=== PATIENT | female | born 1980 | race Caucasian/White ===

== ENCOUNTER → 2019-09-13 | Outpatient (CLI) | payer OTHER ==
--- NOTE | 2019-09-13 15:40 | US ---
EXAMINATION TYPE: US pelvic complete DATE OF EXAM: 09/13/2019 COMPARISON: NONE CLINICAL HISTORY: 38-year-old female R10.2 pelvic pain. TECHNIQUE: Transabdominal (TA). Date of LMP: 09/08/19 FINDINGS: EXAM MEASUREMENTS: Uterus: 12.2 x 4.1 x 4.8 cm Endometrial Stripe: 0.5 cm Right Ovary: 3.8 x 1.9 x 1.5 cm Left Ovary: 3.2 x 1.6 x 1.7 cm 1. Uterus: Slightly prominent in size and anteverted. 2. Endometrium: wnl 3. Right Ovary: wnl 4. Left Ovary: wnl 5. Bilateral Adnexa: wnl 6. Posterior cul-de-sac: wnl IMPRESSION: No specific abnormality of the pelvis on transabdominal scanning.
== END | disposition home or self-care (01) ==
LOC: RADUSWWP 14:47
PROVIDERS: ATTEND Obstetrics & Gynecology
DX: R10.2 Pelvic and perineal pain (principal)
CPT/HCPCS: 76856

== ENCOUNTER → 2021-06-10 | Outpatient (CLI) | payer OTHER ==
--- NOTE | 2021-06-11 08:33 | US ---
EXAMINATION TYPE: US pelvic complete DATE OF EXAM: 06/10/2021 COMPARISON: 09/13/2019 CLINICAL HISTORY: 40-year-old female N93.8 DUB. TECHNIQUE: Transabdominal (TA). EXAM MEASUREMENTS: Uterus: 12.6 x 5.2 x 6.3 cm Endometrial Stripe: 1.4 cm Right Ovary: 2.4 x 1.0 x 1.5 cm Left Ovary: 2.4 x 1.5 x 2.1 cm 1. Uterus: Anteverted and otherwise wnl 2. Endometrium: wnl 3. Right Ovary: wnl 4. Left Ovary: wnl 5. Bilateral Adnexa: wnl 6. Posterior cul-de-sac: wnl IMPRESSION: Endometrial stripe measuring 1.4 cm thick. This should correspond to the secretory phase of the menst rual cycle. Otherwise, unremarkable transabdominal sonographic examination of the pelvis.
== END | disposition home or self-care (01) ==
LOC: RADUSWWP 16:11
PROVIDERS: ATTEND Obstetrics & Gynecology
DX: N93.8 Other specified abnormal uterine and vaginal bleeding (principal)
CPT/HCPCS: 76856

== ENCOUNTER → 2021-06-16 | Outpatient (CLI) | payer OTHER ==
[2021-06-16 16:48] LABS: Basophils % (A) 0 %; Eosinophils # (A) 0.3 k/uL (0-0.7); Eosinophils % (A) 4 %; HCT 42.4 % (34.0-46.0); HGB 14.3 gm/dL (11.4-16.0); Lymphocytes # (A) 1.7 k/uL (1.0-4.8); Lymphocytes % (A) 24 %; MCH 31.2 pg (25.0-35.0); MCHC 33.8 g/dL (31.0-37.0); MCV 92.4 fL (80.0-100.0); Mean Platelet Volume 7.8; Monocytes # (A) 0.3 k/uL (0-1.0); Monocytes % (A) 5 %; Neutrophils # (A) 4.6 k/uL (1.3-7.7); Neutrophils % (A) 65 %; Platelet Count 249 k/uL (150-450); RBC 4.59 m/uL (3.80-5.40); RDW 12.7 % (11.5-15.5); WBC 7.1 k/uL (3.8-10.6)
== END | disposition home or self-care (01) ==
LOC: LABPAT 16:22
PROVIDERS: ATTEND Obstetrics & Gynecology
DX: Z01.812 Encounter for preprocedural laboratory examination (principal)
CPT/HCPCS: 85025

== ENCOUNTER → 2021-06-16 | Outpatient (CLI) | payer OTHER ==
[2021-06-17 06:14] LABS: Progesterone 0.5 ng/mL
[2021-06-17 09:59] LABS: T4, Free (Free Thyroxine) 0.9 ng/dL (0.80-1.80)
[2021-06-17 10:51] LABS: Estradiol 62.2 pg/mL; Follicle Stimulating Hormone 7.8 mIU/mL; Luteinizing Hormone 1.9 mIU/mL; Prolactin 7.8 ng/mL (2.8-29.2)
== END | disposition home or self-care (01) ==
LOC: LABWHC1 16:24
PROVIDERS: ATTEND Obstetrics & Gynecology
DX: Z13.29 Encounter for screening for other suspected endocrine disorder (principal); N93.8 Other specified abnormal uterine and vaginal bleeding
CPT/HCPCS: 36415; 82670; 83001; 83002; 84144; 84146; 84439; 84443; 84479

== ENCOUNTER 2021-06-24 06:56 | Day surgery (SDC) | payer OTHER ==
--- NOTE | 2021-06-23 12:12 | P.HPOB ---
History of Present Illness H&P Date: 06/23/21 Chief Complaint: Menorrhagia is a 40-year-old female with heavy vaginal bleeding. She relates that the bleeding has been for at least 6-8 months in duration very heavy she will bleed every 3-4 weeks with consistency ultrasound labs were done and were other than enlarged uterus unremarkable. This bleeding is significantly impacting her lifestyle and she is unable to really function when she is bleeding at her heaviest. We did discuss multiple options and she has opted for a NovaSure ablation. A D&C with hysteroscopy is being done to accompany this. She is aware there is a small chance her could be some type of concurrent cancer which may require completely separate surgical technique to resolve but she is preferring to have one procedure over having a D&C with hysteroscopy by a NovaSure at a later date. All the risks and included but were not limited to bleeding and infection, uterine perforation, potential bowel injury, potential pain. Past Medical History Past Medical History: No Reported History Additional Past Medical History / Comment(s): HX MIGRAINES History of Any Multi-Drug Resistant Organisms: None Reported Past Surgical History: Tubal Ligation Additional Past Surgical History / Comment(s): WISDOM TEETH REMOVED Past Anesthesia/Blood Transfusion Reactions: No Reported Reaction Additional Past Anesthesia/Blood Transfusion Reaction / Comment(s): HAS NEVER HAD GENERAL ANESTHESIA Past Psychological History: No Psychological Hx Reported Smoking Status: Never smoker Past Alcohol Use History: Rare Past Drug Use History: None Reported - Past Family History Mother Family Medical History: No Reported History Medications and Allergies Home Medications Medication Instructions Recorded Confirmed Type No Known Home Medications 06/23/21 06/23/21 History Allergies Allergy/AdvReac Type Severity Reaction Status Date / Time No Known Allergies Allergy Verified 06/23/21 08:23 Exam Osteopathic Statement: *. No significant issues noted on an osteopathic stru ctural exam other than those noted in the History and Physical/Consult. Intake and Output 06/22/21 06/23/21 06/23/21 22:59 06:59 14:59 Other: Weight 86.183 kg - OBG Physical Exam Breast: both: normal (no masses) Abdomen: bowel sounds normal, no diffuse tenderness, no bruit present, no guar ding noted, no hepatomegaly, no splenomegaly, no mass Vulva: both: normal Vagina: normal moisture, no discharge Cervix: no lesion, no discharge Uterus: normal size, normal contour Adnexa: both: normal Anus/Rectum: normal perianal skin, no rectal mass, no hemorrhoids, heme negative
[~2021-06-24 06:56] MED LIST: DEXAMETHASONE SOD PHOSPHATE 4 MG/ML 1 ML VIAL IV ONE; LACTATED RINGERS 1,000 ML IV SCH; MIDAZOLAM 2 MG/2 ML VIAL IV PRN; ONDANSETRON 4 MG/2 ML VIAL IVP ONE; Pre Op ABX Message 1 EACH MISC MISCELLANE ONE; SCOPOLAMINE 1.5MG/72HR PATCH TRANSDERM ONE
[2021-06-24 07:41] VITALS: TEMP 97.4
[2021-06-24] MEDS ORDERED: LIDOCAINE 1% INJ 10MG/ML (20 ML MDV) ONE (08:28)
[2021-06-24] MEDS ORDERED: fentaNYL (PF) 50 MCG/ML 2 ML AMP ONE (08:28)
[2021-06-24] MEDS ORDERED: PROPOFOL 10 MG/ML 20 ML VIAL IV ONE (08:28)
[2021-06-24] MEDS ORDERED: MIDAZOLAM 2 MG/2 ML VIAL ONE (08:28)
[2021-06-24] MEDS ORDERED: KETOROLAC 15 MG/ML 1 ML VIAL ONE (08:28)
[2021-06-24] MEDS ORDERED: LACTATED RINGERS 1,000 ML IV ONE (08:51)
--- NOTE | 2021-06-24 09:13 | P.OP ---
Date of Procedure: 06/24/21 Preoperative Diagnosis: Menorrhagia Postoperative Diagnosis: Same Procedure(s) Performed: D&C with hysteroscopy and NovaSure ablation Anesthesia: MARSHALL Surgeon: Abiodun Valdez Estimated Blood Loss (ml): 5 IV fluids (ml): 300 Pathology: other (Uterine curettings) Condition: stable Disposition: same day Operative Findings: Pathology pending Description of Procedure: was taken to the operating suite where general anesthetic was found be adequate. She was prepped and draped in normal sterile fashion and placed in dorsal lithotomy position. Initially a weighted speculum was inserted in the vagina and the anterior lip of the cervix was identified and grasped with single tooth tenaculum. Cervix was then dilated and sounded to 11 cm. Camera was then inserted no gross pathology was noted therefore counts removed and sharp curettings of the endometrium were obtained. Tissue. Proliferative. All tissues collected placed on Telfa sent to pathology for evaluation. Once this was completed NovaSure system was brought in with length of 5 and a width of 4.1 use tested and once it passes patency test it was enabled and burn for 1 minute 54 seconds. Conclusion the burn the camera was reinserted with excellent burn noted. All incidents were then removed. Sponge, lap, needle counts were all correct 2. Patient was then taken to the recovery room in stable and satisfactory condition. Plan - Discharge Summary Discharge Rx Participant: No New Discharge Prescriptions: New Ibuprofen [Motrin] 600 mg PO Q6HR PRN #30 tab PRN Reason: Pain Discharge Medication List Ibuprofen [Motrin] 600 mg PO Q6HR PRN #30 tab 06/24/21 [Rx] Follow up Appointment(s)/Referral(s): Abiodun Valdez DO [Doctor of Osteopathic Medicine] - 10 Days Activity/Diet/Wound Care/Special Instructions: Heavy lifting, limit stairs and driving, and pelvic rest. If any high temperatures, heavy bleeding, or severe pain call my office Discharge Disposition: HOME SELF-CARE
[2021-06-24 09:30] VITALS: RESP 16
[2021-06-24] MEDS: HYDROmorphone 0.5 MG/0.5 ML SYRINGE IVP PRN ×2 (09:51→10:07)
[2021-06-24 10:40] VITALS: BP 128/78; PULSE 68
== END 2021-06-24 11:14 | disposition home or self-care (01) ==
LOC: OR 06:56
PROVIDERS: ATTEND Obstetrics & Gynecology
DX: N92.0 Excessive and frequent menstruation with regular cycle (principal); G43.909 Migraine, unspecified, not intractable, without status migrainosus
CPT/HCPCS: 81025; 88305; 58563; J2250; J1100; J2405; J2001; J3010; J1885; J2704; J1170

== ENCOUNTER 2021-11-20 12:04 | Emergency (ER) | payer OTHER ==
[2021-11-20 12:37] VITALS: RESP 18
--- NOTE | 2021-11-20 13:06 | ED ---
General Adult HPI - General Chief complaint: Recheck/Abnormal Lab/Rx Stated complaint: covid+, worsening symptoms Time Seen by Provider: 11/20/21 12:30 Source: patient, RN notes reviewed, old records reviewed Mode of arrival: ambulatory Limitations: no limitations - History of Present Illness Initial comments: This is a 41-year-old female who presents emergency department today stating that she has been feeling achy and having a cough for the last 2 or 3 days. Patient states she also had some chills and just felt odd all over earlier today as if she had a chill going through her body. Patient states she doesn't know that she had a fever she didn't take her temperature. Patient denies chest pain patient denies shortness of breath or difficulty breathing. Patient denies any loss of taste or smell per patient denies abdominal pain patient denies nausea vomiting diarrhea. Denies swelling to legs or calf tenderness - Related Data Home Medications Medication Instructions Recorded Confirmed Dm/Acetaminophen/Doxylamine [Vicks 30 ml PO Q12H PRN 11/20/21 11/20/21 Nyquil Cold-Flu Liquid] Naproxen 500 mg PO Q12H PRN 11/20/21 11/20/21 Allergies Allergy/AdvReac Type Severity Reaction Status Date / Time No Known Allergies Allergy Verified 11/20/21 13:17 Review of Systems ROS Statement: Those systems with pertinent positive or pertinent negative responses have been documented in the HPI. ROS Other: All systems not noted in ROS Statement are negative. Past Medical History Past Medical History: No Reported History Additional Past Medical History / Comment(s): HX MIGRAINES History of Any Multi-Drug Resistant Organisms: None Reported Past Surgical History: Tubal Ligation Additional Past Surgical History / Comment(s): WISDOM TEETH REMOVED Past Anesthesia/Blood Transfusion Reactions: No Reported Reaction Additional Past Anesthesia/Blood Transfusion Reaction / Comment(s): HAS NEVER HAD GENERAL ANESTHESIA Past Psychological History: No Psychological Hx Reported Smoking Status: Never smoker Past Alcohol Use History: Rare Past Drug Use History: None Reported - Past Family History Mother Family Medical History: No Reported History General Exam - General Exam Comments Initial Comments: GENERAL: Patient is well-developed and well-nourished. Patient is nontoxic and well- hydrated and is in mild distress. ENT: Neck is soft and supple. No significant lymphadenopathy is noted. Oropharynx is clear. Moist mucous membranes. Neck has full range of motion without eliciting any pain. EYES: The sclera were anicteric and conjunctiva were pink and moist. Extraocular movements were intact and pupils were equal round and reactive to light. Eyelids were unremarkable. PULMONARY: Unlabored respirations. Good breath sounds bilaterally. No audible rales rhonchi or wheezing was noted. CARDIOVASCULAR: There is a regular rate and rhythm without any murmurs gallops or rubs. ABDOMEN: Soft and nontender with normal bowel sounds. SKIN: Skin is clear with no lesions or rashes and otherwise unremarkable. NEUROLOGIC: Patient is alert and oriented x3. Cranial nerves II through XII are grossly intact. Motor and sensory are also intact. Normal speech, volume and content. Symmetrical smile. Cerebellar exam grossly intact. MUSCULOSKELETAL: Normal extremities with adequate strength and full range of motion. No lower extremity swelling or edema. No calf tenderness. LYMPHATICS: No significant lymphadenopathy is noted PSYCHIATRIC: Normal psychiatric evaluation. Limitations: no limitations Course Vital Signs 11/20/21 12:32 Temperature 97.8 F Pulse Rate 67 Respiratory 18 Rate Blood Pressure 152/89 O2 Sat by Pulse 99 Oximetry Medical Decision Making - Medical Decision Making Patient received monoclonal antibodies. - Lab Data Lab Results 11/20/21 Range/Units 13:09 Coronavirus (PCR) Detected A (Not Detectd) Disposition Clinical Impression: COVID-19 Disposition: HOME SELF-CARE Condition: Good Instructions (If sedation given, give patient instructions): Coronavirus Disease 2019 (COVID-19) Is patient prescribed a controlled substance at d/c from ED?: No Referrals: Chace Garrett MD [Primary Care Provider] - 1-2 days Time of Disposition: 14:01
[2021-11-20] MEDS ORDERED: CASIRIVIMAB (REGN10933) (EUA) 600 MG, IMDEVIMAB (REGN10987) (EUA) 600 MG in SODIUM CHLO... IVPB ONE (14:00)
[2021-11-20] MEDS ORDERED: SODIUM CHLORIDE 0.9% 50 ML IVPB ONE (14:00)
[2021-11-20 14:14] VITALS: TEMP 98.2
[2021-11-20 16:14] VITALS: BP 145/87; PULSE 52
== END 2021-11-20 16:14 | disposition home or self-care (01) ==
LOC: EC 12:04
DX: U07.1 COVID-19 (principal); Z98.51 Tubal ligation status
CPT/HCPCS: 99283; 87635; Q0244

== ENCOUNTER 2022-09-17 14:54 | Emergency (ER) | payer OTHER ==
[2022-09-17] MEDS ORDERED: ACETAMINOPHEN TAB 500 MG TAB PO STA (19:26)
[2022-09-17] MEDS ORDERED: SULFAMETHOX-TMP 800-160MG 1 EACH TAB PO STA (19:26)
--- NOTE | 2022-09-17 19:28 | ED ---
Abdominal Pain HPI - General Chief Complaint: Abdominal Pain Stated Complaint: Abd pain,Blood in stool Time Seen by Provider: 09/17/22 19:19 Source: patient Mode of arrival: ambulatory Limitations: no limitations - History of Present Illness Initial Comments: This is a pleasant 41-year-old female who presents to emergency department complaining of intermittent pain in her upper abdomen which is going on for about 1 week. His related to eating. She states at times she gets done eating she'll sometimes get a sharp cramp in her upper abdomen, mostly epigastric but also right upper quadrant area. Patient then will get some generalized abdominal pain which is followed by diarrhea. States it happened again last night after she ate steak. Patient has not had anything really to eat today as she was concerned about the possibility of recurrence of pain. There is been no fever. Patient also states that she had a small amount of pink in her stool which she questioned whether was blood or not. This occurred only today. No headache, no fever or chills, no changes in vision or hearing, no sore throat or difficulty with speech, no neck pain, no chest pain or shortness of breath,, no nausea or vomiting, no changes in urination or bowel movements, no numbness or tingling, no extremity pain, no skin rashes or lesions. Past medical, surgical, social, and family history reviewed. - Related Data Home Medications Medication Instructions Recorded Confirmed Dm/Acetaminophen/Doxylamine [Vicks 30 ml PO Q12H PRN 11/20/21 11/20/21 Nyquil Cold-Flu Liquid] Naproxen 500 mg PO Q12H PRN 11/20/21 11/20/21 Previous Rx's Medication Instructions Recorded Acetaminophen Tab [Tylenol Tab] 500 mg PO Q6H PRN #24 tablet 09/17/22 Cyclobenzaprine [Flexeril] 10 mg PO TID PRN #20 tab 09/17/22 Ibuprofen [Motrin] 600 mg PO Q8HR PRN #30 tab 09/17/22 Omeprazole [PriLOSEC] 20 mg PO DAILY #30 cap 09/17/22 Sulfamethox-Tmp 800-160Mg [Bactrim 1 tab PO Q12HR #14 tab 09/17/22 DS 800-160 mg] Allergies Allergy/AdvReac Type Severity Reaction Status Date / Time No Known Allergies Allergy Verified 09/17/22 15:27 Review of Systems ROS Statement: Those systems with pertinent positive or pertinent negative responses have been documented in the HPI. ROS Other: All systems not noted in ROS Statement are negative. Past Medical History Past Medical History: No Reported History Additional Past Medical History / Comment(s): HX MIGRAINES History of Any Multi-Drug Resistant Organisms: None Reported Past Surgical History: Tubal Ligation Additional Past Surgical History / Comment(s): WISDOM TEETH REMOVED Past Anesthesia/Blood Transfusion Reactions: No Reported Reaction Additional Past Anesthesia/Blood Transfusion Reaction / Comment(s): HAS NEVER HAD GENERAL ANESTHESIA Past Psychological History: No Psychological Hx Reported Smoking Status: Never smoker Past Alcohol Use History: Rare Past Drug Use History: None Reported - Past Family History Mother Family Medical History: No Reported History General Exam Limitations: no limitations General appearance: alert, in no apparent distress Head exam: Present: atraumatic, normocephalic, normal inspection Eye exam: Present: normal appearance, PERRL, EOMI. Absent: scleral icterus, conjunctival injection, periorbital swelling ENT exam: Present: normal exam, mucous membranes moist Neck exam: Present: normal inspection, full ROM. Absent: tenderness, meningismus, lymphadenopathy Respiratory exam: Present: normal lung sounds bilaterally. Absent: respiratory distress, wheezes, rales, rhonchi, stridor Cardiovascular Exam: Present: regular rate, normal rhythm, normal heart sounds. Absent: systolic murmur, diastolic murmur, rubs, gallop, clicks GI/Abdominal exam: Present: soft, tenderness (Epigastrium and right upper quadrant), normal bowel sounds. Absent: distended, guarding, rebound, rigid Extremities exam: Present: normal inspection, full ROM, normal capillary refill. Absent: tenderness, pedal edema, joint swelling, calf tenderness Back exam: Present: normal inspection Neurological exam: Present: alert, oriented X3, CN II-XII intact Psychiatric exam: Present: normal affect, normal mood Skin exam: Present: warm, dry, intact, normal color. Absent: rash Course Vital Signs 09/17/22 09/17/22 15:25 20:27 Temperature 98 F 98.4 F Pulse Rate 73 98 Respiratory 20 18 Rate Blood Pressure 153/88 140/84 O2 Sat by Pulse 99 97 Oximetry - Reevaluation(s) Reevaluation #1: 09/17/22 22:09 No headache, no fever or chills, no changes in vision or hearing, no sore throat or difficulty with speech, no neck pain, no chest pain or shortness of breath, no abdominal pain, no nausea or vomiting, no changes in urination or bowel movements, no numbness or tingling, no extremity pain, no skin rashes or lesions. Past medical, surgical, social, and family history reviewed. Medical Decision Making - Medical Decision Making Peptic ulcer disease, pancreatitis, gallbladder disease, less likely bowel perforation given the patient's presenting symptomology clinical findings. Is not fit the clinical picture of appendicitis or diverticulitis. Generalized colitis also possible. Other intra-abdominal inflammatory versus infectious etiology possible as well. Does not appear to be consistent with cardiopulmonary disease. Patient doing well at discharge. Patient improved. Patient's Hemoccult was negative for occult blood. Patient workup was essentially negative as well. I suspect the patient may have biliary colic. We will have her adhere to a low fat, low grease diet. Other possibility is peptic ulcer disease. One to treat the patient with omeprazole have her make an appointment with the general surgeon on Tuesday. Patient concurs with this treatment plan. Patient was told to return to the ER for any signs or symptoms worsen. Told to return immediately if any other problems arise. All questions answered. Treatment plan discussed. Patient in agreement Every effort has been made to ensure accuracy of this dictation. However, due to the limitations of electronic medical records and dictation devices, errors in charting still occur. [employer] Specialist Dr. Loco - Lab Data Result diagrams: 09/17/22 19:33 09/17/22 19:33 Lab Results 09/17/22 09/17/22 09/17/22 Range/Units 19:33 19:33 19:33 WBC 10.4 (3.8-10.6) k/uL RBC 5.10 (3.80-5.40) m/uL Hgb 16.0 (11.4-16.0) gm/dL Hct 45.8 (34.0-46.0) % MCV 89.7 (80.0-100.0) fL MCH 31.3 (25.0-35.0) pg MCHC 34.9 (31.0-37.0) g/dL RDW 11.8 (11.5-15.5) % Plt Count 278 (150-450) k/uL MPV 7.8 Neutrophils % 76 % Lymphocytes % 17 % Monocytes % 4 % Eosinophils % 1 % Basophils % 0 % Neutrophils # 8.0 H (1.3-7.7) k/uL Lymphocytes # 1.8 (1.0-4.8) k/uL Monocytes # 0.4 (0-1.0) k/uL Eosinophils # 0.2 (0-0.7) k/uL Basophils # 0.0 (0-0.2) k/uL PT 10.8 (9.0-12.0) sec INR 1.0 (<1.2) APTT 22.9 (22.0-30.0) sec Sodium 137 (137-145) mmol/L Potassium 3.6 (3.5-5.1) mmol/L Chloride 100 (98-107) mmol/L Carbon Dioxide 25 (22-30) mmol/L Anion Gap 12 mmol/L BUN 10 (7-17) mg/dL Creatinine 0.65 (0.52-1.04) mg/dL Est GFR (CKD-EPI)AfAm >90 (>60 ml/min/1.73 sqM) Est GFR (CKD-EPI)NonAf >90 (>60 ml/min/1.73 sqM) Glucose 98 (74-99) mg/dL Plasma Lactic Acid Clarence (0.7-2.0) mmol/L Calcium 9.8 (8.4-10.2) mg/dL Total Bilirubin 0.6 (0.2-1.3) mg/dL AST 27 (14-36) U/L ALT 20 (4-34) U/L Alkaline Phosphatase 65 (38-126) U/L Total Protein 6.9 (6.3-8.2) g/dL Albumin 4.4 (3.5-5.0) g/dL Amylase 58 (30-110) U/L Lipase 99 (23-300) U/L Urine Color Urine Appearance (Clear) Urine pH (5.0-8.0) Ur Specific [place] (1.001-1.035) Urine Protein (Negative) Urine Glucose (UA) (Negative) Urine Ketones (Negative) Urine Blood (Negative) Urine Nitrite (Negative) Urine Bilirubin (Negative) Urine Urobilinogen (<2.0) mg/dL Ur Leukocyte Esterase (Negative) Stool Occult Blood (Negative) 09/17/22 09/17/22 09/17/22 Range/Units 19:33 21:11 21:51 WBC (3.8-10.6) k/uL RBC (3.80-5.40) m/uL Hgb (11.4-16.0) gm/dL Hct (34.0-46.0) % MCV (80.0-100.0) fL MCH (25.0-35.0) pg MCHC (31.0-37.0) g/dL RDW (11.5-15.5) % Plt Count (150-450) k/uL MPV Neutrophils % % Lymphocytes % % Monocytes % % Eosinophils % % Basophils % % Neutrophils # (1.3-7.7) k/uL Lymphocytes # (1.0-4.8) k/uL Monocytes # (0-1.0) k/uL Eosinophils # (0-0.7) k/uL Basophils # (0-0.2) k/uL PT (9.0-12.0) sec INR (<1.2) APTT (22.0-30.0) sec Sodium (137-145) mmol/L Potassium (3.5-5.1) mmol/L Chloride (98-107) mmol/L Carbon Dioxide (22-30) mmol/L Anion Gap mmol/L BUN (7-17) mg/dL Creatinine (0.52-1.04) mg/dL Est GFR (CKD-EPI)AfAm (>60 ml/min/1.73 sqM) Est GFR (CKD-EPI)NonAf (>60 ml/min/1.73 sqM) Glucose (74-99) mg/dL Plasma Lactic Acid Clarence 0.6 L (0.7-2.0) mmol/L Calcium (8.4-10.2) mg/dL Total Bilirubin (0.2-1.3) mg/dL AST (14-36) U/L ALT (4-34) U/L Alkaline Phosphatase (38-126) U/L Total Protein (6.3-8.2) g/dL Albumin (3.5-5.0) g/dL Amylase (30-110) U/L Lipase (23-300) U/L Urine Color Colorless Urine Appearance Clear (Clear) Urine pH 5.0 (5.0-8.0) Ur Specific [place] 1.005 (1.001-1.035) Urine Protein Negative (Negative) Urine Glucose (UA) Negative (Negative) Urine Ketones Trace H (Negative) Urine Blood Negative (Negative) Urine Nitrite Negative (Negative) Urine Bilirubin Negative (Negative) Urine Urobilinogen <2.0 (<2.0) mg/dL Ur Leukocyte Esterase Negative (Negative) Stool Occult Blood Negative (Negative) - Radiology Data Radiology results: report reviewed (I did review these films myself.), image reviewed Disposition Clinical Impression: Acute upper abdominal pain Disposition: HOME SELF-CARE Condition: Good Instructions (If sedation given, give patient instructions): Low Fat Diet (ED), Abdominal Pain (ED) Additional Instructions: Refrain from NSAIDs, continue to take something for pain and use [id number] Tylenol. Call at 8 AM Tuesday morning for follow-up appointment with the surgeon. Follow-up with your regular physician as directed. Return to the ER immediately if any symptoms worsen, new symptoms arise, or any other pro blems develop. Prescriptions: Sulfamethox-Tmp 800-160Mg [Bactrim DS 800-160 mg] 1 tab PO Q12HR #14 tab Cyclobenzaprine [Flexeril] 10 mg PO TID PRN #20 tab PRN Reason: Spasms Ibuprofen [Motrin] 600 mg PO Q8HR PRN #30 tab PRN Reason: Pain Omeprazole [PriLOSEC] 20 mg PO DAILY #30 cap Acetaminophen Tab [Tylenol Tab] 500 mg PO Q6H PRN #24 tablet PRN Reason: Pain Is patient prescribed a controlled substance at d/c from ED?: No Referrals: Lev Kevin DO [Doctor of Osteopathic Medicine] - 09/20/22 8:00 am Time of Disposition: 22:10
[2022-09-17] MEDS ORDERED: SODIUM CHLORIDE 0.9% 1,000 ML IV ONE (19:39)
[2022-09-17] MEDS ORDERED: ACETAMINOPHEN IV (For NPO) 1,000 MG in SALINE 100 100ML.BAG IVPB STA (19:39)
[2022-09-17] MEDS ORDERED: PANTOPRAZOLE 40 MG/10 ML VIAL IVP STA (19:39)
[2022-09-17 19:42] LABS: Basophils % (A) 0 %; Eosinophils # (A) 0.2 k/uL (0-0.7); Eosinophils % (A) 1 %; HCT 45.8 % (34.0-46.0); Lymphocytes # (A) 1.8 k/uL (1.0-4.8); Lymphocytes % (A) 17 %; MCH 31.3 pg (25.0-35.0); MCHC 34.9 g/dL (31.0-37.0); MCV 89.7 fL (80.0-100.0); Mean Platelet Volume 7.8; Monocytes # (A) 0.4 k/uL (0-1.0); Monocytes % (A) 4 %; Neutrophils % (A) 76 %; Platelet Count 278 k/uL (150-450); RDW 11.8 % (11.5-15.5); WBC 10.4 k/uL (3.8-10.6)
[2022-09-17 19:52] LABS: ALT 20 U/L (4-34); AST 27 U/L (14-36); African American GFR (CKD) >90 (>60 ml/min/1.73 sqM); Albumin 4.4 g/dL (3.5-5.0); Alkaline Phosphatase 65 U/L (38-126); Amylase 58 U/L (30-110); Anion Gap 12 mmol/L; Blood Urea Nitrogen 10 mg/dL (7-17); Calcium 9.8 mg/dL (8.4-10.2); Carbon Dioxide 25 mmol/L (22-30); Chloride 100 mmol/L (98-107); Glucose 98 mg/dL (74-99); Lipase 99 U/L (23-300); Non-African American GFR(CKD) >90 (>60 ml/min/1.73 sqM); Potassium 3.6 mmol/L (3.5-5.1); Sodium 137 mmol/L (137-145); Total Bilirubin 0.6 mg/dL (0.2-1.3); Total Protein 6.9 g/dL (6.3-8.2)
[2022-09-17] MEDS ORDERED: BUPIVACAINE (PF) 0.5% 30 ML VIAL SQ STA (19:55)
[2022-09-17 19:58] LABS: Partial Thromboplastin Time 22.9 sec (22.0-30.0); Prothrombin Time 10.8 sec (9.0-12.0)
--- NOTE | 2022-09-17 20:51 | US ---
EXAMINATION TYPE: US gallbladder DATE OF EXAM: 09/17/2022 COMPARISON: ultrasound 05/19/2015 CLINICAL HISTORY: Upper abdominal pain. Generalized abdomen pain TECHNIQUE: Multiple sonographic images of the right upper quadrant are obtained. FINDINGS: EXAM MEASUREMENTS: Liver Length: 14.9 cm Gallbladder Wall: 0.1 cm CBD: 0.2 cm Right Kidney: 10.7 x 4.6 x 4.1 cm Pancreas: wnl Liver: wnl Gallbladder: No stones or wall thickening Evidence for sonographic Pittman's sign: neg CBD: wnl Right Kidney: No hydronephrosis or masses seen IMPRESSION: No evidence for acute process.
--- NOTE | 2022-09-17 20:53 | XR ---
EXAMINATION TYPE: XR abdomen acute w cxr DATE OF EXAM: 09/17/2022 8:38 PM INDICATION: Patient age:Female; 41 years old; Reason for study: Upper abdominal pain; PHH. COMPARISON: None. TECHNIQUE: Two radiographic views of the abdomen (upright and supine) and a frontal chest radiograph were obtained. FINDINGS CHEST: Lungs/Pleura: The lungs are clear. There is no evidence of pleural effusion, focal consolidation or p neumothorax. Mediastinum: Unremarkable. Vasculature: Normal. Heart: Normal in size. Musculoskeletal: The osseous structures are intact. Other findings: No significant. FINDINGS ABDOMEN: Bowel gas pattern: Normal without dilated loops of small or large bowel. Fecal material and gas are d emonstrated throughout the colon and rectum. Abnormal calcifications: Multiple tiny calcifications are seen in the upper abdomen the represent ing ested contents. Musculoskeletal: Nonfusion the posterior arch of L5. Other: Tubal ligation devices bilaterally. IMPRESSION: 1. No radiographic evidence for acute abdominal process. 2. No acute cardiopulmonary process
[2022-09-17 22:01] LABS: Appearance,Urine Clear (Clear); Bilirubin,Urine Negative (Negative); Blood,Urine Negative (Negative); Color,Urine Colorless; Glucose,Urine (UA) Negative (Negative); Ketones,Urine Trace (Negative); Leukocyte Esterase,Urine Negative (Negative); Nitrite,Urine Negative (Negative); Protein,Urine Negative (Negative); Specific Gravity,Urine 1.005 (1.001-1.035); Urobilinogen,Urine <2.0 mg/dL (<2.0)
[2022-09-17 22:42] VITALS: BP 134/74; PULSE 72; RESP 19; TEMP 97.4
== END 2022-09-17 22:42 | disposition home or self-care (01) ==
LOC: EC 14:54
DX: R10.13 Epigastric pain (principal); Z79.899 Other long term (current) drug therapy
CPT/HCPCS: 36415; 80053; 82150; 83605; 83690; 85025; 85610; 85730; 82272; 81003; 74022; 76705; 99284; 96375; 96374; J0131; C9113

== ENCOUNTER → 2023-11-01 | Outpatient (CLI) | payer OTHER ==
--- NOTE | 2023-11-01 17:18 | XR ---
EXAMINATION TYPE: XR foot complete RT DATE OF EXAM: 11/01/2023 COMPARISON: NONE HISTORY: 43-year-old female M79.671 pain in right foot TECHNIQUE: 3 views FINDINGS: There may be minimal early degenerative spurring at the first MTP joint. No acute fracture, subluxati on, or dislocation is seen. IMPRESSION: No acute osseous abnormality seen.
== END | disposition home or self-care (01) ==
LOC: RADXRMAIN 15:32
PROVIDERS: ATTEND Nurse Practitioner Family
DX: M79.671 Pain in right foot (principal)

== ENCOUNTER → 2023-11-01 | Outpatient (CLI) | payer OTHER ==
--- NOTE | 2023-11-03 22:26 | MM ---
Reason for Exam: Screening (asymptomatic). Baseline mammogram. Patient History: Menarche at age 11. First Full-Term at age 20. Patient has history of breast feeding. Paternal aunt had breast cancer, age 60. Last menstrual period: 10/11/2023 Risk Values: Neelima 5 year model risk: 0.7%. NCI Lifetime model risk: 8.7%. Prior Study Comparison: Patient's first Mammogram. Tissue Density: There are scattered fibroglandular densities. Findings: Analyzed By CAD. No significant mass, suspicious microcalcification, or other discrete abnormality is seen. Overall Assessment: Negative, BI-RAD 1 Management: Screening Mammogram of both breasts in 1 year. . Patient should continue monthly self-breast exams. A clinical breast exam by your physician is recommended on an annual basis. This exam should not preclude additional follow-up of suspicious palpable abnormalities. Note on Neelima scores and lifetime risk: 1. A Neelima score greater than 3% is considered moderate risk. If this is the case, consider specialist referral to assess eligibility for a risk reducing agent. 2. If overall lifetime risk for the development of breast cancer is 20% or higher, the patient may qualify for future screening with alternating mammogram and breast MRI. Electronically signed and approved by: Samir Mahan M.D. Radiologist
== END | disposition home or self-care (01) ==
LOC: RADMAMWWP 15:04
PROVIDERS: ATTEND Family Medicine
DX: Z12.31 Encounter for screening mammogram for malignant neoplasm of breast (principal); Z80.3 Family history of malignant neoplasm of breast
CPT/HCPCS: 77067

== ENCOUNTER → 2023-11-21 | Outpatient (CLI) | payer OTHER ==
--- NOTE | 2023-11-21 17:38 | US ---
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 Transvaginal sonogr aphic images were medically necessary to better assess the following anatomy: endometrium Date of LMP: last month EXAM MEASUREMENTS: Uterus: 9.8 x 5.5 x 5.0 cm Endometrial Stripe: 0.8 cm Right Ovary: 2.7 x 1.9 x 2.4 cm Left Ovary: 2.7 x 1.9 x 2.7 cm 1. Uterus: Anteverted wnl 2. Endometrium: heterogeneous appearance, wnl post ablation 3. Right Ovary: wnl 4. Left Ovary: 1.4 x 1.2 x 1.0cm simple appearing cyst, unable to see on TV 5. Bilateral Adnexa: wnl 6. Posterior cul-de-sac: wnl IMPRESSION: 1. Ill-defined endometrial canal post ablation. No suspicious fluid collection identified. 2. Left ovarian cyst
== END | disposition home or self-care (01) ==
LOC: RADUSWWP 15:29
PROVIDERS: ATTEND Family Medicine
DX: N99.85 Post endometrial ablation syndrome (principal); N83.202 Unspecified ovarian cyst, left side
CPT/HCPCS: 76830; 76856